=== PATIENT | female | born 1995 | race Caucasian/White ===

== ENCOUNTER 2017-10-11 21:11 | Emergency (ER) | payer OTHER ==
[~2017-10-11] VITALS: Ht 162.6 cm; Wt 85.0 kg
[2017-10-11 22:48] VITALS: BP 123/90
== END 2017-10-11 22:49 | disposition home or self-care (01) ==
LOC: EME 21:11
DX: S63.502A Unspecified sprain of left wrist, initial encounter (principal); Z87.81 Personal history of (healed) traumatic fracture; Z88.0 Allergy status to penicillin
CPT/HCPCS: 73110; 99281; 99283